=== PATIENT | female | born 1985 | race Caucasian/White ===

== ENCOUNTER 2016-07-09 10:41 | Emergency (ER) | payer OTHER ==
[~2016-07-09] VITALS: Ht 167.6 cm; Wt 110.0 kg
[~2016-07-09 10:41] MED LIST: MELO7.5T5 PO
[2016-07-09 10:44] VITALS: Ht 167.6 cm; Wt 110.0 kg
[2016-07-09] MEDS ORDERED: MoRPHine SULFATE 10 MG/ML CARP/VIAL IM STA (11:08)
[2016-07-09] MEDS ORDERED: MoRPHine SULFATE 4 MG/ML 1 ML CARP\\VIAL IV ONE (11:56)
[2016-07-09] MEDS ORDERED: MoRPHine SULFATE 4 MG/ML 1 ML CARP\\VIAL IV PRN (12:00)
--- NOTE | 2016-07-09 12:09 | DIAGNOSTIC IMAGING REPORT ---
LEFT FOOT 2 VIEWS CLINICAL HISTORY: Left foot pain status post trauma COMPARISON: None. DISCUSSION: There is a fracture of the distal fibula, posterior malleolus, and medial malleolus. No fractures the foot proper are visualized. There is Achilles insertional and plantar calcaneal spurring. There is disruption of the ankle mortise. IMPRESSION: Fracture subluxation of the ankle. No fractures or dislocations of the foot proper are visualized Electronically signed by: Baltazar Briseno M.D. 07/09/2016 12:08 PM Dictated Date/Time: 07/09/2016 12:07 PM
--- NOTE | 2016-07-09 12:11 | DIAGNOSTIC IMAGING REPORT ---
LEFT TIBIA/FIBULA 2 VIEWS ROUTINE, LEFT ANKLE 2 VIEWS CLINICAL HISTORY: trauma . Left ankle pain. COMPARISON STUDY: None. FINDINGS: The proximal tibia and fibula are intact. There is a 4 mm calcification within the pretibial soft tissues. Soft tissue laceration seen within the lateral aspect of the distal left lower leg. Trimalleolar left ankle fracture. The posterior malleolus demonstrates 2 mm of displacement. The medial malleolus is slightly distracted. The lateral malleolus demonstrates 7 mm of posterior displacement. There is mild widening of the medial ankle joint. Soft tissue swelling within the left ankle. IMPRESSION: Mildly displaced trimalleolar left ankle fracture as described above with mild widening of the ankle joint. Electronically signed by: David Wild M.D. 07/09/2016 12:10 PM Dictated Date/Time: 07/09/2016 12:05 PM
[2016-07-09 12:15] LABS: BASO % 0.2 %; BASO ABS # 0.02 K/uL (0-0.2); COMPLETE YES; EOS % 1.1 %; HEMATOCRIT 40.8 % (37-47); IG% 0.1 %; LYMPH % 13.6 %; LYMPH ABS # 1.31 K/uL (1.2-3.4); MEAN CELL VOLUME 88.3 fL (80-100); MEAN CORPUSCULAR HEMOGLOBIN 29.4 pg (25-34); MEAN CORPUSCULAR HGB CONC 33.3 g/dl (32-36); MEAN PLATELET VOLUME 10.2 fL (7.4-10.4); MONO % 5.8 %; NEUT % 79.2 %; PLATELET COUNT 270 K/uL (130-400); RED BLOOD COUNT 4.62 M/uL (4.2-5.4); WHITE BLOOD COUNT 9.61 K/uL (4.8-10.8)
--- NOTE | 2016-07-09 12:18 | EMERGENCY ROOM VISIT NOTE ---
History First contact with patient: 10:50 Chief Complaint: FALL Stated Complaint: FELL DOWN STAIRS - LEFT LEG History of Present Illness The patient is a 30 year old female who presents to the Emergency Room with complaints of left ankle injury occurred earlier today. Patient states she was walking down some stairs when she slipped and fell, twisting the left ankle. She states immediate pain and swelling, was unable to walk on the ankle after the injury. She denies any previous injuries to this ankle. She denies numbness, tingling, opening in the skin or noted bleeding. She denies any other injuries from the fall, did not hit her head, did not have loss of consciousness. She denies knee pain, hip pain, back pain, neck pain. She did not take any medications for the pain prior to arrival. Review of Systems GENERAL: Denies fevers, chills, malaise, fatigue, unintentional weight changes. HEENT: Denies dizziness, visual problems, hearing loss, tinnitus. Denies difficulty swallowing or oral lesions. PULMONARY: Denies cough, shortness of breath, sputum production or hemoptysis. CARDIOVASCULAR: Denies chest pain, palpitations, dyspnea on exertion, orthopnea or peripheral edema. GASTROINTESTINAL: Denies diarrhea, constipation, nausea, vomiting, or abdominal pain. GENITOURINARY: Denies dysuria, frequency, urgency or nocturia. NEUROLOGIC: Denies history of epilepsy, CVA, TIA or chronic headaches. MUSCULOSKELETAL: Joint tenderness/swelling of the left ankle. SKIN: Denies rashes or lesions. PSYCHIATRIC: Denies history of depression or mental illness. ENDOCRINE: Denies history of diabetes, thyroid disorders, abnormal hair growth or sexual dysfunction. Past Medical/Surgical History Medical Problems: (1) ADHD (attention deficit hyperactivity disorder) Family History No significant family history Social History Smoking Status: Current Every Day Smoker Alcohol Use: occasionally Occupation Status: employed Current/Historical Medications Scheduled Amphetamine-Dextroamphetamine 20MG (Adderall 20MG), 20 MG PO DAILY Scheduled PRN Oxycodone Immediate Rel Tab (Roxicodone Ir), 5 MG PO Q4H PRN for Severe Pain Allergies Coded Allergies: Sulfa Drugs (Verified Allergy, Intermediate, BACTRIM-HIVES, 07/09/16) Penicillins (Verified Allergy, Unknown, 07/09/16) Physical Exam Vital Signs Date Time Temp Pulse Resp B/P Pulse Ox O2 Delivery O2 Flow Rate FiO2 5/30/17 16:39 72 18 106/78 99 Room Air 07/09/16 15:17 84 16 109/68 98 Room Air 07/09/16 14:00 81 18 147/92 99 Room Air 07/09/16 12:05 90 18 158/98 100 Room Air 07/09/16 10:44 36.7 83 18 139/90 100 Room Air Physical Exam CONSTITUTIONAL: No acute distress but appears in significant pain. Well appearing and well nourished. Alert and oriented X 4 with normal affect. HEENT: Normocephalic, atraumatic. Pupils equal, round and reactive to light, EOMI. TMs normal. Pharynx normal. NECK: Supple, full active range of motion without discomfort. RESPIRATORY: Clear to auscultation bilaterally with no wheezing, crackles, rhonchi or stridor. Equal expansion bilaterally. CARDIOVASCULAR: Regular rate and rhythm with no murmurs, rubs or gallops. Normal peripheral perfusion. No edema. GASTROINTESTINAL: Soft, nontender, nondistended. Bowel sounds present in all quadrants. MUSCULOSKELETAL: Significant tenderness of the anterior and medial left ankle with noted deformity, ecchymosis, swelling. No breaks in the skin to suggest laceration or abrasion. DP pulse 2+ and palpable, normal cap refill and sensation distal to the injury. Range of motion of the left ankle severely limited due to pain. Full range of motion of all other joints without discomfort. INTEGUMENTARY: No rash or other significant dermatologic conditions noted. NEUROLOGIC: Cranial nerves II-XII grossly intact. No focal neurologic deficits noted. Medical Decision & Procedures ER Provider Diagnostic Interpretation: LEFT TIBIA/FIBULA 2 VIEWS ROUTINE, LEFT ANKLE 2 VIEWS CLINICAL HISTORY: trauma . Left ankle pain. COMPARISON STUDY: None. FINDINGS: The proximal tibia and fibula are intact. There is a 4 mm calcification within the pretibial soft tissues. Soft tissue laceration seen within the lateral aspect of the distal left lower leg. Trimalleolar left ankle fracture. The posterior malleolus demonstrates 2 mm of displacement. The medial malleolus is slightly distracted. The lateral malleolus demonstrates 7 mm of posterior displacement. There is mild widening of the medial ankle joint. Soft tissue swelling within the left ankle. IMPRESSION: Mildly displaced trimalleolar left ankle fracture as described above with mild widening of the ankle joint. ----- LEFT FOOT 2 VIEWS CLINICAL HISTORY: Left foot pain status post trauma COMPARISON: None. DISCUSSION: There is a fracture of the distal fibula, posterior malleolus, and medial malleolus. No fractures the foot proper are visualized. There is Achilles insertional and plantar calcaneal spurring. There is disruption of the ankle mortise. IMPRESSION: Fracture subluxation of the ankle. No fractures or dislocations of the foot proper are visualized. ----- CT OF THE LEFT ANKLE WITHOUT CONTRAST CT DOSE: 313.79 mGy.cm CLINICAL HISTORY: Left trimalleolar fracture. TECHNIQUE: Axial images of the left ankle were obtained without IV contrast. Sagittal and coronal reconstructions were viewed. COMPARISON STUDY: Left ankle radiographs July 09, 2016. FINDINGS: There is a moderately displaced comminuted fracture of the distal shaft of the left fibula which is displaced 7 mm. There is a acute mildly displaced fracture of the medial malleolus with 5 mm of displacement. There is a posterior oblique distal right tibial fracture with 7 mm of displacement. There is intra-articular extension. No intra-articular bone fragments are present. There are a few locules of adjacent gas. Tibiotalar joint space widening is noted. Talar dome is intact. There is no left calcaneal fracture. There is a nondisplaced fracture within the base of the left first metatarsal. Tarsometatarsal joints are aligned. Soft tissue swelling of the left ankle is noted. IMPRESSION: 1. Acute mildly displaced trimalleolar left ankle fracture with associated widening of the tibiotalar joint, as described above. 2. A few locules of soft tissue gas along the medial malleolus. These are nonspecific but likely related to the fracture/dislocation rather than an open fracture although could be correlated with physical exam. 3. Nondisplaced fracture the base of the left first metatarsal. Anatomic alignment of the tarsometatarsal joints. Laboratory Results 07/09/16 12:00 Red Blood Count 4.62, Mean Corpuscular Volume 88.3, Mean Corpuscular Hemoglobin 29.4, Mean Corpuscular Hemoglobin Concent 33.3, Mean Platelet Volume 10.2, Neutrophils (%) (Auto) 79.2, Lymphocytes (%) (Auto) 13.6, Monocytes (%) (Auto) 5.8, Eosinophils (%) (Auto) 1.1, Basophils (%) (Auto) 0.2, Neutrophils # (Auto) 7.60, Lymphocytes # (Auto) 1.31, Monocytes # (Auto) 0.56, Eosinophils # (Auto) 0.11, Basophils # (Auto) 0.02 07/09/16 12:00 Test 07/09/16 12:00 White Blood Count 9.61 K/uL (4.8-10.8) Red Blood Count 4.62 M/uL (4.2-5.4) Hemoglobin 13.6 g/dL (12.0-16.0) Hematocrit 40.8 % (37-47) Mean Corpuscular Volume 88.3 fL (80-100) Mean Corpuscular Hemoglobin 29.4 pg (25-34) Mean Corpuscular Hemoglobin Concent 33.3 g/dl (32-36) Platelet Count 270 K/uL (130-400) Mean Platelet Volume 10.2 fL (7.4-10.4) Neutrophils (%) (Auto) 79.2 % Lymphocytes (%) (Auto) 13.6 % Monocytes (%) (Auto) 5.8 % Eosinophils (%) (Auto) 1.1 % Basophils (%) (Auto) 0.2 % Neutrophils # (Auto) 7.60 K/uL (1.4-6.5) Lymphocytes # (Auto) 1.31 K/uL (1.2-3.4) Monocytes # (Auto) 0.56 K/uL (0.11-0.59) Eosinophils # (Auto) 0.11 K/uL (0-0.5) Basophils # (Auto) 0.02 K/uL (0-0.2) RDW Standard Deviation 43.5 fL (36.4-46.3) RDW Coefficient of Variation 13.4 % (11.5-14.5) Immature Granulocyte % (Auto) 0.1 % Immature Granulocyte # (Auto) 0.01 K/uL (0.00-0.02) Prothrombin Time 11.2 SECONDS (9.0-12.0) Prothromb Time International Ratio 1.0 (0.9-1.1) Activated Partial Thromboplast Time 23.7 SECONDS (21.0-31.0) Partial Thromboplastin Ratio 0.9 Anion Gap 7.0 mmol/L (3-11) Est Creatinine Clear Calc Drug Dose 140.9 ml/min Estimated GFR () 128.4 Estimated GFR (Non- 110.8 BUN/Creatinine Ratio 15.0 (10-20) Calcium Level 8.7 mg/dl (8.5-10.1) Medications Administered Medications (Trade) Dose Ordered Sig/Gail Route Start Time Stop Time Status Last Admin Dose Admin Morphine Sulfate (MoRPHine SULFATE INJ) 8 mg NOW STAT IM 07/09/16 11:08 07/09/16 11:11 DC 07/09/16 11:16 8 MG Morphine Sulfate (MoRPHine SULFATE INJ) 4 mg Q1H PRN IV 07/09/16 12:00 07/09/16 17:11 DC 07/09/16 13:00 4 MG Morphine Sulfate (MoRPHine SULFATE INJ) 4 mg 1156 ONCE IV 07/09/16 11:56 07/09/16 11:59 DC 07/09/16 12:02 4 MG Hydromorphone HCl (Dilaudid Inj) 1 mg NOW STAT IV 07/09/16 13:38 07/09/16 13:40 DC 07/09/16 13:43 1 MG Ondansetron HCl (Zofran Inj) 4 mg NOW STAT IV 07/09/16 15:05 07/09/16 15:07 DC 07/09/16 15:12 4 MG Ondansetron HCl (Zofran Inj) 4 mg NOW STAT IV 07/09/16 16:15 07/09/16 16:16 DC 07/09/16 16:22 4 MG Medical Decision CC: Patient presenting with complaint of left ankle injury Interpretation of Labs: No acute abnormalities. Differential Diagnosis: Includes, but not limited to ankle sprain, strain, fracture, dislocation Summary: Patient was evaluated at bedside, history of physical exam performed. She appears very uncomfortable and in a lot of pain. Crying on exam. There is noted swelling, ecchymosis and deformity of the left ankle, suspect fracture. Neurovascularly intact distally. No open areas noted on the skin. Orders were placed at bedside for IM morphine for pain, x-ray of the left foot, ankle, tib-fib to evaluate for fracture/dislocation. Patient discussed with Dr. Clark, who agrees with my assessment and plan. X-rays reviewed by myself, trimalleolar fracture noted with minimal displacement. Patient remains in severe pain, IV ordered and additional IV morphine given. Basic labs also sent. Patient discussed with Dr. Washington, orthopedics, who recommended splinting of the fracture, requested CT imaging to be done, and patient will follow up in clinic tomorrow for surgical planning. Patient reassessed multiple times throughout ED stay, remained in significant pain and requiring multiple doses of IV pain medication. Patient does appear to have much better pain control after splinting and immobilization. I discussed all results and plan for discharge with the patient and her . Patient complaining of some nausea, this was treated with IV Zofran and improved. Patient educated on use of crutches, and states she feels comfortable with discharge home. Rx for oxycodone sent to pharmacy. Patient is to follow up with orthopedics tomorrow, she verbalized understanding. Impression Primary Impression: Trimalleolar fracture of ankle, closed Departure Information Dispostion Home / Self-Care Condition GOOD Prescriptions Oxycodone Immediate Rel Tab (ROXICODONE IR) 5 Mg Tab 5 MG PO Q4H Y for Severe Pain for 3 Days, #18 TAB Prov: Christel Chapman CRNP 07/09/16 Referrals No Doctor, Assigned (PCP) Jovany Washington M.D. Patient Instructions ED Fx Ankle General, [facility] Additional Instructions Keep the splint clean and dry. Keep your ankle elevated and apply ice for the next 24-48 hours to help with swelling. Do not put any weight on the left leg. Use the crutches to get around. Tylenol 1000 mg every 8 hours for pain. May take the oxycodone as prescribed every 4 hours as needed for severe pain. Call [facility] orthopedics at 8 AM tomorrow morning to schedule an appointment for follow-up and surgery planning. Please return to the ER for severe worsening pain that is not managed by your medications, numbness or discoloration of toes, or any other concerns. Work Instructions Return To Work: after follow-up (with orthopedics) Additional Work Instructions: No weight bearing on the left leg. Must use crutches. Problem Qualifiers Primary Impression: Trimalleolar fracture of ankle, closed Encounter type: initial encounter Laterality: left Qualified Codes: S82.852A - Displaced trimalleolar fracture of left lower leg, initial encounter for closed fracture
[2016-07-09 12:23] LABS: PARTIAL THROMBOPLASTIN RATIO 0.9; PROTHROMBIN TIME (PATIENT) 11.2 SECONDS (9.0-12.0)
[2016-07-09] MEDS ORDERED: AMPH20TA2 PO (12:24)
[2016-07-09 12:33] LABS: CALCIUM 8.7 mg/dl (8.5-10.1); CREATININE 0.72 mg/dl (0.60-1.20); POTASSIUM 3.7 mmol/L (3.5-5.1)
[2016-07-09] MEDS ORDERED: HYDROmorphone INJ 1 MG/ML SYR IV STA (13:38)
--- NOTE | 2016-07-09 14:34 | DIAGNOSTIC IMAGING REPORT ---
CT OF THE LEFT ANKLE WITHOUT CONTRAST CT DOSE: 313.79 mGy.cm CLINICAL HISTORY: Left trimalleolar fracture. TECHNIQUE: Axial images of the left ankle were obtained without IV contrast. Sagittal and coronal reconstructions were viewed. COMPARISON STUDY: Left ankle radiographs July 09, 2016. FINDINGS: There is a moderately displaced comminuted fracture of the distal shaft of the left fibula which is displaced 7 mm. There is a acute mildly displaced fracture of the medial malleolus with 5 mm of displacement. There is a posterior oblique distal right tibial fracture with 7 mm of displacement. There is intra-articular extension. No intra-articular bone fragments are present. There are a few locules of adjacent gas. Tibiotalar joint space widening is noted. Talar dome is intact. There is no left calcaneal fracture. There is a nondisplaced fracture within the base of the left first metatarsal. Tarsometatarsal joints are aligned. Soft tissue swelling of the left ankle is noted. IMPRESSION: 1. Acute mildly displaced trimalleolar left ankle fracture with associated widening of the tibiotalar joint, as described above. 2. A few locules of soft tissue gas along the medial malleolus. These are nonspecific but likely related to the fracture/dislocation rather than an open fracture although could be correlated with physical exam. 3. Nondisplaced fracture the base of the left first metatarsal. Anatomic alignment of the tarsometatarsal joints. Electronically signed by: Tucker Garcia M.D. 07/09/2016 2:33 PM Dictated Date/Time: 07/09/2016 2:03 PM
[2016-07-09] MEDS ORDERED: ONDANSETRON INJ 2 MG/ML 2 ML VIAL IV STA ×2 (15:05→16:15)
[2016-07-09] MEDS ORDERED: OXYC1TAB3 PO (15:58)
[2016-07-09 16:39] VITALS: BP 106/78; PULSE 72; O2SAT 99
[2016-07-11] MEDS ORDERED: LOVENOX SQ (10:09)
[2016-07-11] MEDS ORDERED: OXYC1TAB3 PO (10:09)
[2016-07-11] MEDS ORDERED: TRAM-10 PO (10:10)
[2016-07-16] MEDS ORDERED: OXYC1TAB3 PO (17:40)
== END 2016-07-09 16:41 | disposition home or self-care (01) ==
LOC: C.EDB 10:42 → C.EDD 16:41
DX: S82.852A Displaced trimalleolar fracture of left lower leg, initial encounter for closed fracture (principal); W10.9XXA Fall (on) (from) unspecified stairs and steps, initial encounter; F90.9 Attention-deficit hyperactivity disorder, unspecified type; F17.210 Nicotine dependence, cigarettes, uncomplicated; Z79.899 Other long term (current) drug therapy

== ENCOUNTER → 2016-07-16 | Day surgery (SDC) | payer OTHER ==
[2016-07-11 10:10] VITALS: Ht 167.6 cm; Wt 109.1 kg
[~2016-07-16] VITALS: Ht 167.6 cm; Wt 109.1 kg
[~2016-07-16] MED LIST changes: +ATROPINE SULFATE 0.1 MG/ML 5ML SYR IV PRN; +BUPIVACAINE 0.5 % 5 MG/1 ML MPF 30ML VIAL ONE; +BUPIVACAINE/EPINEPHRINE 0.25% 1:200,000 30 ML VIAL ONE; +CEFAZOLIN 2000 MG/60 ML D5W IV SCH; +CEFAZOLIN IV 2,000 MG in DEXTROSE 5% 50ML 50 ML IV SCH; +CEFAZOLIN SOD 1 GM VIAL ONE; +DEXAMETHASONE SOD INJ 4 MG/ML VIAL ONE; +EpHEDrine SULFATE INJ 50 MG/ML AMP IV PRN; +EpHEDrine SULFATE INJ 50 MG/ML AMP ONE; +FENTANYL CITRATE INJ 50 MCG/1 ML 2 ML VIAL ONE; +FLUMAZENIL 0.1 MG/1 ML 10 ML VIAL IV PRN; +GLYCOPYRROLATE INJ 0.2 MG/ML VIAL ONE; +HYDROmorphone INJ 1 MG/ML SYR IV PRN; +KETOROLAC TROMETHAMINE 30 MG/ML VIAL IV STA; +KETOROLAC TROMETHAMINE 30 MG/ML VIAL ONE; +LABETALOL HCL IV 5 MG/ML 20ML IV ONE; +LABETALOL HCL IV 5 MG/ML 20ML IV PRN; +LACTATED RINGER'S 1000ML 1,000 ML IV SCH; +LIDOCAINE HCL 2% 2 ML VIAL (20MG/ML) ONE; +LOVENOX SQ; -MELO7.5T5 PO; +MEPIVACAINE HCL 1% 30 ML VIAL ONE; +MIDAZOLAM HCL 1 MG/ML 2ML VIAL ONE; +MoRPHine SULFATE 2 MG/ML CARP IV PRN; +MoRPHine SULFATE 4 MG/ML 1 ML CARP\\VIAL IV PRN; +NALOXONE HCL 0.4 MG/1 ML VIAL/CARP IV PRN; +NEOSTIGMINE METHYLSULFATE 5 MG/5 ML SYR ONE; +ONDANSETRON INJ 2 MG/ML 2 ML VIAL IV PRN; +ONDANSETRON INJ 2 MG/ML 2 ML VIAL ONE; +OXYC1TAB3 PO; +OXYCODONE/ACETAMINOPHEN 5-325 TAB PO PRN; +PHENYLEPHRINE HCL INJ 10 MG/ML VIAL ONE; +POVIDONE-IODINE OP SOLN 30 ML BTL ONE; +PROMETHAZINE HCL INJ 12.5 MG in SODIUM CHLORIDE 0.9% 50ML 50 ML IV PRN; +PROMETHAZINE HCL INJ 25 MG/ML 1 ML VIAL ONE; +PROPOFOL IV EMULSION 10 MG/ML 20 ML VIAL IV ONE; +ROCURONIUM BROMIDE 10 MG/ML 5 ML VIAL ONE; +SODIUM CHLORIDE 0.9% 1000ML 1,000 ML IV SCH; +SODIUM CHLORIDE 0.9% INJ 10 ML VIAL ONE; +SUCCINYLCHOLINE CHLORIDE 20 MG/ML 10 ML VIAL IV ONE; +TRAM-10 PO
--- NOTE | 2016-07-16 11:54 | History & Physical Bridge Note ---
H&P Re-Evaluation Bridge Note: I have examined the patient, reviewed the History & Physical and in the interval since the performance of the History & Physical I have noted the following changes of clinical significance: No changes noted
--- NOTE | 2016-07-16 17:17 | Discharge Instructions-SurgCtr ---
Discharge Instructions Date of Service Jul 16, 2016. Visit Reason for Visit: Left Ankle Trimalleolar Fracture Discharge Discharge Diagnosis / Problem: Left Ankel Trimalleolar Fracture Discharge Goals Goal(s): Decrease discomfort, Improve function, Increase independence Medications Restart Stopped Medication(s): Resume Lovenox 40 mg SQ once daily on 07/17/16 at 9:00 a.m. Activity Recommendations Activity Limitations: per Instructions/Follow-up section Weightbearing Status: Left non-weightbearing Anesthesia . Post Anesthesia Instructions: If you have had General Anesthesia or IV Sedation: * Do not drive today. * Resume driving when surgeon permits. * Do not make important decisions or sign legal documents today. * Call surgeon for: 1. Temperature elevations greater than 101 degrees F. 2. Uncontrollable pain. 3. Excessive bleeding. 4. Persistent nausea and vomiting. 5. Medication intolerance (nausea, vomiting or rash). * For nausea and vomiting use only clear liquids such as: tea, soda, bouillon until nausea subsides, then gradually increase diet as tolerated. * If you have any concerns or questions, call your surgeon's office. If physician is unavailable and it is an emergency, call 911 or go to the nearest emergency room. . Instructions / Follow-Up Instructions / Follow-Up DIET: * Resume previous diet. MEDICATIONS: * Please take your prescriptions as instructed at your pre-op appointment and/ or see medication discharge instructions listed above. * If concerns develop, call your physician's office at . * Start Lovenox 07/17/16 at 9:00 a.m. * Pain medication as prescribed. SPECIAL CARE INSTRUCTIONS: * Ice to left ankle as needed for pain/swelling. * Elevate left ankle as needed for pain/swelling. * Keep dressing clean, dry, intact. Keep splint on at all times. * Do not put weight on left leg. Use crutches to assist with walking. * Okay to wiggle toes frequently and move/bend knee as tolerated. * Your surgical extremity may be discolored due to prepping agents used on the skin. A bluish-green tint is a normal variant and should not cause alarm. Call your doctor at [phone] if: * Temperature above 101 degrees * Pain not relieved by pain medicine ordered * There is increased drainage or redness from any incision * You have any unanswered questions, problems or concerns. FOLLOW UP VISIT: * If not already scheduled, please call the office at to schedule a follow-up appointment. * Follow up with physical therapy and Dr. Washington as scheduled. Diet Recommendations Home Diet: no limitations, resume previous diet Procedures Procedures Performed: Left Ankle Open Reduction Internal Fixation Pending Studies Studies pending at discharge: no Medical Emergencies . Who to Call and When: Medical Emergencies: If at any time you feel your situation is an emergency, please call 911 immediately. . Non-Emergent Contact Non-Emergency issues call your: Surgeon Call Non-Emergent contact if: temperature is above 101, your pain is not controlled, your pain is concerning you, wound has increased drainage . . "Provider Documentation" section prepared by Arlyn Horan. . [place] Drug Monitoring Program Search Results: patient reviewed within database
--- NOTE | 2016-07-16 17:28 | [facility] Post Operative Brief Note ---
Immediate Operative Summary Operative Date Jul 16, 2016. Pre-Operative Diagnosis Left Ankle Trimalleolar Fracture Post-Operative Diagnosis Same Procedure(s) Performed Left Ankle Trimalleolar Fracture Open Reduction Internal Fixation Surgeon Dr. Washington [employer] Associate Surgeon(s) Dr. Hale; Marlin Johnson PA-C Estimated Blood Loss 50 mL Findings trimalleolar fracture Specimens None Drains 0 Anesthesia general with block Complication(s) None Disposition Recovery Room / PACU
--- NOTE | 2016-07-16 18:47 | OPERATIVE REPORT ---
PREOPERATIVE DIAGNOSIS: Left ankle trimalleolar fracture. POSTOPERATIVE DIAGNOSIS: Left ankle same. PROCEDURE: Left ankle trimalleolar fracture ORIF. SURGEON: Dr. Washington. IMPORT CUSTOMER SERVICE MANAGER: Dr. Parish. SECOND IMPORT CUSTOMER SERVICE MANAGER: Tolu Johnson PA-C. HISTORY OF PRESENT ILLNESS: This 30-year-old white female presented to the office with complaints of left ankle pain after falling at home and fracturing her ankle. X-rays were obtained. She elected to proceed with surgical intervention after being educated about potential risks and outcomes. OPERATION: The patient was administered a regional block and then taken to the operating room where she was given general anesthetic. She was prepped and draped in the usual sterile fashion. Please see Dr. Washington's operative report for specifics of the procedure. I was present for the entire case from initial patient positioning through final wound closure. Assistance was provided in tissue retraction, hemostasis, fracture reduction, hardware placement, and final wound closure. The patient was taken to the recovery room in satisfactory condition.
[2016-07-16 18:58] VITALS: TEMP 36.8
[2016-07-16 19:44] VITALS: BP 133/77; O2SAT 99
--- NOTE | 2016-07-16 19:56 | Anesthesia Progress Nt - [facility] ---
Anesthesia Post Op Note Date & Time Jul 16, 2016 at 19:56 Vital Signs Pain Intensity: 4 Vital Signs Past 12 Hours Date Time Temp Pulse Resp B/P (MAP) Pulse Ox O2 Delivery O2 Flow Rate FiO2 07/16/16 19:44 90 12 133/77 (95) 99 Room Air 07/16/16 18:58 36.8 93 16 129/87 (101) 100 Room Air 07/16/16 18:52 129/77 07/16/16 18:52 36.8 93 20 129/77 98 Room Air 07/16/16 18:50 96 28 07/16/16 18:50 96 28 99 07/16/16 18:48 131/85 07/16/16 18:45 85 19 98 07/16/16 18:45 86 19 07/16/16 18:42 134/88 07/16/16 18:40 88 16 100 07/16/16 18:40 86 16 07/16/16 18:37 131/80 07/16/16 18:35 78 17 07/16/16 18:35 77 17 98 07/16/16 18:32 139/76 07/16/16 18:30 82 17 100 07/16/16 18:30 82 17 07/16/16 18:27 130/77 07/16/16 18:25 77 17 100 07/16/16 18:25 78 17 07/16/16 18:22 126/81 07/16/16 18:20 78 18 100 07/16/16 18:20 77 18 07/16/16 18:17 129/79 07/16/16 18:15 79 19 07/16/16 18:15 79 19 100 07/16/16 18:12 99/76 07/16/16 18:10 82 16 100 07/16/16 18:10 82 16 07/16/16 18:07 130/82 07/16/16 18:05 80 14 07/16/16 18:05 80 14 100 07/16/16 18:02 139/88 07/16/16 18:00 83 18 100 07/16/16 18:00 83 18 07/16/16 17:57 137/83 07/16/16 17:55 84 17 100 07/16/16 17:55 84 17 07/16/16 17:52 135/69 07/16/16 17:50 85 14 100 07/16/16 17:50 85 14 07/16/16 17:47 122/70 07/16/16 17:45 85 14 100 07/16/16 17:45 87 14 07/16/16 17:45 36.2 85 16 122/70 100 Mask 6 07/16/16 17:44 145/76 07/16/16 12:40 0 07/16/16 12:39 93 30 100 07/16/16 12:39 93 07/16/16 12:39 93 30 100 07/16/16 12:39 93 07/16/16 12:37 139/87 07/16/16 12:37 139/87 07/16/16 12:34 77 07/16/16 12:34 77 23 100 07/16/16 12:34 77 23 100 07/16/16 12:34 77 07/16/16 12:32 149/89 07/16/16 12:32 149/89 07/16/16 12:29 87 17 100 07/16/16 12:29 87 17 100 07/16/16 12:29 85 07/16/16 12:29 85 07/16/16 12:27 164/107 07/16/16 12:27 164/107 07/16/16 12:24 80 21 134/85 100 07/16/16 12:24 77 07/16/16 12:24 77 07/16/16 12:24 80 21 134/85 100 07/16/16 12:19 87 07/16/16 12:19 87 07/16/16 12:19 90 0 99 07/16/16 12:19 90 0 99 07/16/16 12:14 73 0 97 07/16/16 12:14 74 07/16/16 12:14 74 07/16/16 12:14 73 0 97 07/16/16 12:09 79 07/16/16 12:09 81 0 97 07/16/16 12:09 79 07/16/16 12:09 81 0 97 07/16/16 10:36 37.2 87 18 132/89 (103) 96 Room Air Notes Mental Status: alert / awake / arousable, participated in evaluation Pt Amnestic to Procedure: Yes Nausea / Vomiting: adequately controlled Pain: adequately controlled Airway Patency, RR, SpO2: stable & adequate BP & HR: stable & adequate Hydration State: stable & adequate Anesthetic Complications: no major complications apparent
--- NOTE | 2016-07-16 21:52 | OPERATIVE REPORT ---
DATE OF OPERATION: 07/16/2016 PREOPERATIVE DIAGNOSIS: Left ankle trimalleolar fracture. POSTOPERATIVE DIAGNOSIS: Same. PROCEDURE: Open reduction and internal fixation of left ankle trimalleolar fracture. SURGEON: Dr. Washington. ROAD OILER: Tin Padron MD and Tolu Johnson, physician's surgical services assistant. ANESTHESIA: General with popliteal block. INDICATIONS OF PROCEDURE: The patient is a 30-year-old female with a left ankle trimalleolar fracture. She has been evaluated in the office, had CT scan and x-rays done. Treatment options, risks and benefits have been discussed and she elected to proceed with operative intervention. She stopped her Lovenox 36 hours prior to surgery. PROCEDURE IN DETAIL: Informed consent was obtained. The patient identified as Leann Rebollar. She identified the operative site as the left ankle. I marked with my initials. A preop surgical time out was performed. A preop dose of IV antibiotics were given. She was taken to the operating room, positioned prone on the OR table after administration of the anesthetic. The splint was removed and inspection revealed no blistering, swelling was mild, there was some bruising present over the distal and posterior aspects of the medial and lateral sides of the ankle. The ankle was scrubbed with chlorhexidine scrub and then double prepped with chlorhexidine and prepped and draped in the usual sterile fashion. Prior to that a nonsterile tourniquet was applied about the left upper thigh. DVT prophylaxis intraoperatively with foot pump, postoperatively with early mobility and Lovenox beginning the day after surgery. The limb was exsanguinated with the Esmarch, tourniquet inflated to 275 mmHg. A longitudinal lateral incision was made about 20 cm in length just parallel to the posterior border of the fibula. Blunt dissection was performed down to subcutaneous tissues. The superficial peroneal nerve was watched for, but not encountered. Careful dissection was performed throughout the incision. Once down to the bone, subperiosteal exposure of the fibular fracture site was performed. The fibular fracture site was opened, cleaned of hematoma and soft tissue and anatomically reduced with a bone reduction clamp. I then turned attention to the posterior malleolar fracture. Dissection was performed posterior to the peroneal musculature elevating the soft tissues posteriorly. The fascial covering over the deep posterior compartment was opened and these muscles were bluntly elevated off of the posterior aspect of the tibia. This exposed the posterior malleolar fracture. Subperiosteal exposure of its fracture margins were performed, medial, lateral and superior. An anterior counterincision was made over the anterior tibia medial to the tibialis anterior tendon and with a large bone reduction clamp placed on the tibia using fluoroscopic guidance, the posterior tibial malleolar fracture was reduced. In order to get anatomic reduction I did various combinations of distraction, dorsiflexion, distal pressure with the clamp, a little bit of prying with a freer elevator and trying both with and without fibular reduction. An anatomic reduction was obtained with the large bone clamp. I then placed 2 K wires distal to the clamp to secure this and then evaluated fluoroscopically and found that the alignment was excellent. I then took a T plate, applied it posteriorly, used fluoroscopy to help align it. I then placed 2 guidewires with a 4.0 cancellous screws distally in the medial and lateral slots. These were placed up to the anterior cortex. After adjusting the pins x1 they were overdrilled and screws were inserted across the fracture in a unicortical fashion. I then applied a proximal screw in the shaft. This was a cortical screw, 3.5 mm in diameter and that was followed by another 4.0 cancellous screw in between. This resulted in an anatomic alignment of the posterior malleolar fracture and good positioning of the hardware. Attention was then turned to the lateral malleolar fracture. A lag screw was inserted from posterior and distal to proximal and anterior. This was followed by a one-third tubular locking plate, which was prebent and affixed to the fibula, 8 holes in length. A cancellous screw was placed distally and a cortical screw proximally and after determining good positioning and fracture reduction an additional cancellous screw was placed distally and 2 locking screws proximally. I eventually inserted a third unicortical locking screw distally, once it was determined that the syndesmosis screw was no longer needed. The tourniquet was let down after 20 minutes of inflation. There was no significant bleeding. The wounds were kept moist throughout the surgery using both Betadine lavage and sterile saline for irrigation. Attention was turned to the medial malleolar fracture where an 8 cm medial incision was made. Blunt dissection was then performed down to the subcutaneous tissues. The periosteum remained intact and this required a longitudinal division to identify the fracture site. The fracture site was exposed, cleaned of soft tissue and hematoma of which there was no soft tissue but small hematoma. This small fracture which angled fairly sharply from distal posterior proximal anterior was then reduced with a bone clamp and guide pins were inserted. It took several attempts at adjusting the guide pins in order to get them in the proper position as well as to avoid the other hardware. I at one point proceeded to switch to a tension band type fixation even applying a cancellous screw in the shaft; however, I was not happy with the depth of penetration of the pins as they were striking some of the preexisting hardware from the posterior fixation. I decided against the tension band construct after I was able to redirect the guidewires in an appropriate direction to avoid the posterior hardware yet provide good orientation across the fracture site and up the shaft of the tibia. The posterior tibial tendon was identified. Blunt dissection was performed down on the wires and they were overdrilled on the near cortex and screws were approximately 34 and 40 mm in length were inserted. Both screws had excellent bite and the fracture was anatomically reduced and was stable. It did not appear that the screws were hitting the hardware at all. At this time, the syndesmosis was stressed. I was able to directly palpate the tibia and the fibula. I reduced the fibula and then distracted both manually and with a clamp and there was absolutely no laxity on either compression or distraction of the syndesmosis. Dr. Parish was able to confirm this. All wounds were copiously irrigated with sterile saline. The anterior counter incision was closed with 3-0 Vicryl and genia. On the medial side, the periosteum was closed over the fracture. The skin was then closed with 3-0 Vicryl and genia. On the lateral side, I used 2-0 Vicryl to reapproximate soft tissues over the anterior 1-1/2 of the plate. Proximal to that, the level of the fracture there was gross disruption of the deep periosteum and soft tissues and a periosteal coverage repair was not possible. The subcutaneous tissues were closed with 2-0 and 3-0 Vicryls and genia on the skin. A soft sterile dressing was applied after cleaning the leg with some diluted peroxide and saline. Xeroform, 4 x 4's, ABDs and a well-padded posterior splint with the ankle in neutral position was applied. Fluoroscopic images, AP, lateral and mortise views demonstrated that there was anatomic reduction of the fractures, intact ankle syndesmosis and mortise and good positioning of the hardware. She was awakened from anesthesia without difficulty and taken to recovery in stable condition. There were no specimens or complications. Counts were correct at the end of case. Blood loss was approximately 50 mL. At the conclusion of the operation, I spoke to patient's family and informed them of my findings. Postoperative instructions were given. She will be non-weightbearing on the affected leg. She will be given additional prescription for pain medication as she is running out. She is to start the Lovenox the morning following surgery. We discussed any problems or questions should arise that she should contact my office. She is to elevate the leg and she will receive a postop dose of IV antibiotics prior to discharge. The plan will be for non-weightbearing for 6 weeks. She will be in next week to get her fracture boot and initiate some PT for range of motion. I attest to the content of the Intraoperative Record and any orders documented therein. Any exception s are noted below.
== END | disposition home or self-care (01) ==
LOC: X.SURG 10:15
PROVIDERS: ATTEND Physical Medicine & Rehabilitation Sports Medicine
DX: S82.852A Displaced trimalleolar fracture of left lower leg, initial encounter for closed fracture (principal); W01.0XXA Fall on same level from slipping, tripping and stumbling without subsequent striking against object, initial encounter; Y92.009 Unspecified place in unspecified non-institutional (private) residence as the place of occurrence of the external cause; F90.9 Attention-deficit hyperactivity disorder, unspecified type

== ENCOUNTER → 2016-07-30 | Outpatient (CLI) | payer OTHER ==
[~2016-07-30] MED LIST changes: -ATROPINE SULFATE 0.1 MG/ML 5ML SYR IV PRN; -BUPIVACAINE 0.5 % 5 MG/1 ML MPF 30ML VIAL ONE; -BUPIVACAINE/EPINEPHRINE 0.25% 1:200,000 30 ML VIAL ONE; -CEFAZOLIN 2000 MG/60 ML D5W IV SCH; -CEFAZOLIN IV 2,000 MG in DEXTROSE 5% 50ML 50 ML IV SCH; -CEFAZOLIN SOD 1 GM VIAL ONE; -DEXAMETHASONE SOD INJ 4 MG/ML VIAL ONE; -EpHEDrine SULFATE INJ 50 MG/ML AMP IV PRN; -EpHEDrine SULFATE INJ 50 MG/ML AMP ONE; -FENTANYL CITRATE INJ 50 MCG/1 ML 2 ML VIAL ONE; -FLUMAZENIL 0.1 MG/1 ML 10 ML VIAL IV PRN; -GLYCOPYRROLATE INJ 0.2 MG/ML VIAL ONE; -HYDROmorphone INJ 1 MG/ML SYR IV PRN; -KETOROLAC TROMETHAMINE 30 MG/ML VIAL IV STA; -KETOROLAC TROMETHAMINE 30 MG/ML VIAL ONE; -LABETALOL HCL IV 5 MG/ML 20ML IV ONE; -LABETALOL HCL IV 5 MG/ML 20ML IV PRN; -LACTATED RINGER'S 1000ML 1,000 ML IV SCH; -LIDOCAINE HCL 2% 2 ML VIAL (20MG/ML) ONE; -MEPIVACAINE HCL 1% 30 ML VIAL ONE; -MIDAZOLAM HCL 1 MG/ML 2ML VIAL ONE; -MoRPHine SULFATE 2 MG/ML CARP IV PRN; -MoRPHine SULFATE 4 MG/ML 1 ML CARP\\VIAL IV PRN; -NALOXONE HCL 0.4 MG/1 ML VIAL/CARP IV PRN; -NEOSTIGMINE METHYLSULFATE 5 MG/5 ML SYR ONE; -ONDANSETRON INJ 2 MG/ML 2 ML VIAL IV PRN; -ONDANSETRON INJ 2 MG/ML 2 ML VIAL ONE; -OXYCODONE/ACETAMINOPHEN 5-325 TAB PO PRN; -PHENYLEPHRINE HCL INJ 10 MG/ML VIAL ONE; -POVIDONE-IODINE OP SOLN 30 ML BTL ONE; -PROMETHAZINE HCL INJ 12.5 MG in SODIUM CHLORIDE 0.9% 50ML 50 ML IV PRN; -PROMETHAZINE HCL INJ 25 MG/ML 1 ML VIAL ONE; -PROPOFOL IV EMULSION 10 MG/ML 20 ML VIAL IV ONE; -ROCURONIUM BROMIDE 10 MG/ML 5 ML VIAL ONE; -SODIUM CHLORIDE 0.9% 1000ML 1,000 ML IV SCH; -SODIUM CHLORIDE 0.9% INJ 10 ML VIAL ONE; -SUCCINYLCHOLINE CHLORIDE 20 MG/ML 10 ML VIAL IV ONE
== END | disposition home or self-care (01) ==
LOC: C.RDSM 10:10
PROVIDERS: ATTEND Physical Medicine & Rehabilitation Sports Medicine
DX: S82.852A Displaced trimalleolar fracture of left lower leg, initial encounter for closed fracture (principal); X58.XXXA Exposure to other specified factors, initial encounter

== ENCOUNTER → 2016-08-30 | Outpatient (CLI) | payer OTHER | END | disposition home or self-care (01) | LOC: C.RDSM 13:05 | PROVIDERS: ATTEND Physical Medicine & Rehabilitation Sports Medicine | DX: S82.852D Displaced trimalleolar fracture of left lower leg, subsequent encounter for closed fracture with routine healing (principal); X58.XXXA Exposure to other specified factors, initial encounter ==

== ENCOUNTER → 2016-11-01 | Outpatient (CLI) | payer OTHER | END | disposition home or self-care (01) | LOC: C.RDSM 11:08 | PROVIDERS: ATTEND Physical Medicine & Rehabilitation Sports Medicine | DX: Z09 Encounter for follow-up examination after completed treatment for conditions other than malignant neoplasm (principal) ==

== ENCOUNTER 2017-06-07 16:12 | Emergency (ER) | payer OTHER ==
[~2017-06-07] VITALS: Ht 167.6 cm; Wt 122.5 kg
[2017-06-07 16:15] VITALS: TEMP 36.6; Ht 167.6 cm; Wt 122.5 kg
[2017-06-07] MEDS ORDERED: SODIUM CHLORIDE 0.9% 1000ML 1,000 ML IV STA (16:27)
[2017-06-07] MEDS ORDERED: KETOROLAC TROMETHAMINE 30 MG/ML VIAL IV STA (16:27)
[2017-06-07] MEDS ORDERED: ALBUTEROL 0.083% NEBU SOLN 3 ML VIAL INH STA (16:27)
--- NOTE | 2017-06-07 16:48 | DIAGNOSTIC IMAGING REPORT ---
CHEST ONE VIEW PORTABLE CLINICAL HISTORY: Chest Pain dyspnea COMPARISON STUDY: No previous studies for comparison. FINDINGS: The bones soft tissues and hemidiaphragms are normal. The cardiomediastinal silhouette is normal. The lungs are clear. The pulmonary vasculature is normal. IMPRESSION: Negative chest. The above report was generated using voice recognition software. It may contain grammatical, syntax or spelling errors. Electronically signed by: Norris Palomo M.D. 06/07/2017 4:47 PM Dictated Date/Time: 06/07/2017 4:47 PM
[2017-06-07 16:54] LABS: BASO % 0.3 %; BASO ABS # 0.02 K/uL (0-0.2); EOS % 1.7 %; EOS ABS # 0.12 K/uL (0-0.5); HEMATOCRIT 43.7 % (37-47); HEMOGLOBIN 14.8 g/dL (12.0-16.0); IG# 0.03 K/uL (0.00-0.02); LYMPH % 30.6 %; LYMPH ABS # 2.16 K/uL (1.2-3.4); MEAN CELL VOLUME 88.5 fL (80-100); MEAN CORPUSCULAR HGB CONC 33.9 g/dl (32-36); MEAN PLATELET VOLUME 10.8 fL (7.4-10.4); MONO % 5.4 %; MONO ABS # 0.38 K/uL (0.11-0.59); NEUT % 61.6 %; NEUT ABS # 4.36 K/uL (1.4-6.5); PLATELET COUNT 255 K/uL (130-400); RED CELL DISTRIBUTION WIDTH CV 13.6 % (11.5-14.5); RED CELL DISTRIBUTION WIDTH SD 44.2 fL (36.4-46.3); WHITE BLOOD COUNT 7.07 K/uL (4.8-10.8)
--- NOTE | 2017-06-07 16:59 | EMERGENCY ROOM VISIT NOTE ---
History Report prepared by [facility]: Bhargavi Rodriguez Under the Supervision of: Dr. Noel Souza D.O. 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 She states that a little more than 2 weeks ago she used a hardener for paint in her home. Ever since then, she has had SOB and a persistent cough and has noticed it worsening lately. She also has a sharp pain in her chest and sitting up alleviates her pain but taking a deep breath worsens it. This is been present for the past 2 weeks as well. She does admit to a cough which is been present during the same time. The patient notes she has numbness in her hands as well. Patient denies headaches, diabetes, hypertension, hyperlipidemia, CAD, and history of sudden at a young age. Patient denies swelling of calves, history of immobilization or recent surgery, prior history of DVT, hemoptysis, history of malignancy, or control/estrogen use. She does admit to smoking along with recent travel to [place]. 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 Patient denies swelling of calves, recent trips, history of immobilization or recent surgery, prior history of DVT , hemoptysis, history of malignancy, or control/estrogen use. Review of Systems See HPI for pertinent positives & negatives. A total of 10 systems reviewed and were otherwise negative. Past Medical & Surgical Medical Problems: (1) ADHD (attention deficit hyperactivity disorder) Family History No significant family history Social History Smoking Status: Current Every Day Smoker Alcohol Use: occasionally Occupation Status: employed Current/Historical Medications Scheduled Acetaminophen (Tylenol), 1,000 MG PO PRN UD Scheduled PRN Amphetamine-Dextroamphetamine 10MG (Adderall 10MG), 10 MG PO DAILY PRN for Allergies Coded Allergies: Sulfa Drugs (Verified Allergy, Intermediate, BACTRIM-HIVES, 07/16/16) Latex1 -Allergic Contact Dermititis (Verified Allergy, Mild, ITCHY, 07/16/16 ) Penicillins (Verified Allergy, Unknown, CHILD, 07/16/16) Physical Exam Vital Signs Date Time Temp Pulse Resp B/P (MAP) Pulse Ox O2 Delivery O2 Flow Rate FiO2 06/07/17 17:34 100 20 147/80 100 Room Air 06/07/17 16:42 117 06/07/17 16:15 36.6 99 20 138/89 99 Room Air Physical Exam GENERAL: Sitting up in bed, alert, well appearing, well nourished, no distress, non-toxic. EYE EXAM: normal conjunctiva. PERRL and EOM's grossly intact. OROPHARYNX: no exudate, no erythema, lips, buccal mucosa, and tongue normal and mucous membranes are moist NECK: supple, no nuchal rigidity, no adenopathy, non-tender LUNGS: Clear to auscultation. Normal chest wall mechanics HEART: no murmurs, S1 normal and S2 normal CHEST: Acute reproducible anterior chest wall pain. Same as stated complaint. ABDOMEN: abdomen soft, non-tender, normo-active bowel sounds, no masses, no rebound or guarding. BACK: Back is symmetrical on inspection and there is no deformity, no midline tenderness, no CVA tenderness. SKIN: no rashes and no bruising UPPER EXTREMITIES: upper extremities are grossly normal. LOWER EXTREMITIES: No pitting edema. Calves are equal bilateral NEURO EXAM: Normal sensorium, cranial nerves II-XII intact, normal speech, no weakness of arms, no weakness of legs. Ambulatory with difficulty. Medical Decision & Procedures ER Provider Diagnostic Interpretation: Radiology results as stated below per my review and the radiologist's interpretation: CHEST ONE VIEW PORTABLE CLINICAL HISTORY: Chest Pain dyspnea COMPARISON STUDY: No previous studies for comparison. FINDINGS: The bones soft tissues and hemidiaphragms are normal. The cardiomediastinal silhouette is normal. The lungs are clear. The pulmonary vasculature is normal. IMPRESSION: Negative chest. The above report was generated using voice recognition software. It may contain grammatical, syntax or spelling errors. Electronically signed by: Norris Palomo M.D. 06/07/2017 4:47 PM Laboratory Results 06/07/17 16:40 Red Blood Count 4.94, Mean Corpuscular Volume 88.5, Mean Corpuscular Hemoglobin 30.0, Mean Corpuscular Hemoglobin Concent 33.9, Mean Platelet Volume 10.8, Neutrophils (%) (Auto) 61.6, Lymphocytes (%) (Auto) 30.6, Monocytes (%) (Auto) 5.4, Eosinophils (%) (Auto) 1.7, Basophils (%) (Auto) 0.3, Neutrophils # (Auto) 4.36, Lymphocytes # (Auto) 2.16, Monocytes # (Auto) 0.38, Eosinophils # (Auto) 0.12, Basophils # (Auto) 0.02 06/07/17 16:40 Test 06/07/17 16:40 White Blood Count 7.07 K/uL (4.8-10.8) Red Blood Count 4.94 M/uL (4.2-5.4) Hemoglobin 14.8 g/dL (12.0-16.0) Hematocrit 43.7 % (37-47) Mean Corpuscular Volume 88.5 fL (80-100) Mean Corpuscular Hemoglobin 30.0 pg (25-34) Mean Corpuscular Hemoglobin Concent 33.9 g/dl (32-36) Platelet Count 255 K/uL (130-400) Mean Platelet Volume 10.8 fL (7.4-10.4) Neutrophils (%) (Auto) 61.6 % Lymphocytes (%) (Auto) 30.6 % Monocytes (%) (Auto) 5.4 % Eosinophils (%) (Auto) 1.7 % Basophils (%) (Auto) 0.3 % Neutrophils # (Auto) 4.36 K/uL (1.4-6.5) Lymphocytes # (Auto) 2.16 K/uL (1.2-3.4) Monocytes # (Auto) 0.38 K/uL (0.11-0.59) Eosinophils # (Auto) 0.12 K/uL (0-0.5) Basophils # (Auto) 0.02 K/uL (0-0.2) RDW Standard Deviation 44.2 fL (36.4-46.3) RDW Coefficient of Variation 13.6 % (11.5-14.5) Immature Granulocyte % (Auto) 0.4 % Immature Granulocyte # (Auto) 0.03 K/uL (0.00-0.02) D-Dimer < 190 ug/L FEU (0-500) Anion Gap 4.0 mmol/L (3-11) Est Creatinine Clear Calc Drug Dose 133.5 ml/min Estimated GFR () 112.3 Estimated GFR (Non- 96.9 BUN/Creatinine Ratio 12.3 (10-20) Calcium Level 8.9 mg/dl (8.5-10.1) Troponin I < 0.015 ng/ml (0-0.045) Laboratory results per my review. Medications Administered Medications (Trade) Dose Ordered Sig/Gail Route Start Time Stop Time Status Last Admin Dose Admin Albuterol Sulfate (Ventolin 0.083% 2.5MG/3ML Neb) 2.5 mg NOW STAT INH 06/07/17 16:27 06/07/17 16:28 DC 06/07/17 16:53 2.5 MG Ketorolac Tromethamine (Toradol Inj) 30 mg NOW STAT IV 06/07/17 16:27 06/07/17 16:28 DC 06/07/17 16:53 30 MG Sodium Chloride 1,000 ml @ 999 mls/hr Q1H1M STAT IV 06/07/17 16:27 06/07/17 17:27 DC 06/07/17 16:54 999 MLS/HR ECG Per My Interpretation Indication: SOB/dyspnea Rate (beats per minute): 94 Rhythm: sinus rhythm Findings: no ectopy, other (normal axis) ED Course ED COURSE: Vital signs were reviewed and showed situationally The patients medical record was reviewed The above diagnostic studies were performed and reviewed. ED treatments and interventions as stated above. 1621: The patient was evaluated in room B2. A complete history and physical examination was performed. 1627: Sodium Chloride 1000 ml @ 2.5 mls/hr IV Toradol Inj 30 mg IV Albuterol Sulfate 2.5 mg INH 1800: Upon reevaluation, the patient is agreeable.I discussed my findings with the patient and she understands and agrees with the treatment plan. Based on the patients age, coexisting illnesses, exam and lab findings the decision to treat as an outpatient was made. The patient remained stable while under my care. The patient appeared well at the time of discharge. Medical Decision Differential diagnoses includes but is not limited to pneumonia, bronchitis, COPD/Asthma exacerbation, pneumothorax, pulmonary embolism, congestive heart failure, acute coronary syndrome. Patient is a 31-year-old female who presents the ER for shortness of breath associated with pleuritic chest pain which is been present for the past 2 weeks. Patient has no cardiac or PE risk factors with the exception of recent trip to [place] and smoking. Patient does have reproducible anterior chest wall pain which is same as stated complaint. Does worsen with sitting up and palpation. EKG was unremarkable. Patient was given Toradol and fluids along with a neb treatment. CBC along with BMP was unremarkable. Troponin was negative. D-dimer was negative. Patient is a low risk. Symptoms have been present for greater than 8 hours. I do not believe that this is cardiac in nature. I do believe it is likely muscle skeletal as she is reproducible pain. Recommended Tylenol and Motrin. She did become tachycardic with a neb. Discussed with Pt concerning signs and symptoms to watch out for. Pt was instructed to follow up with their PCP and discussed with the patient their option to return to the ED at anytime for persistent or worsening symptoms. The appropriate anticipatory guidance and out-patient management, including indications for return to the emergency department, were explained at length to the patient and understood. Medication Reconcilliation Current Medication List: was personally reviewed by me Blood Pressure Screening Patient's blood pressure: Elevated blood pressure Blood pressure disposition: Elevated BP felt to be situational Impression Primary Impression: SOB (shortness of breath) Additional Impression: Muscular chest pain Scribe Attestation The scribe's documentation has been prepared under my direction and personally reviewed by me in its entirety. I confirm that the note above accurately reflects all work, treatment, procedures, and medical decision making performed by me. Departure Information Dispostion Home / Self-Care Referrals Marisol Luciano C.R.N.P. (PCP) Forms HOME CARE DOCUMENTATION FORM, IMPORTANT VISIT INFORMATION Patient Instructions [facility] Additional Instructions Please follow up with your primary care doctor with in the next 24 hours. Any worsening of your symptoms, please return to the ED immediately. This includes any fevers greater than 100.4, worsening pain, chest pain, shortness breath, persistent nausea, vomiting, unable to eat or drink, or any other concerning signs or symptoms from your standpoint. Please follow-up with your primary care doctor as stated above for repeat evaluation on Friday. Please take Tylenol or Motrin as needed for your chest pain. Problem Qualifiers
[2017-06-07] MEDS ORDERED: ACET-1256 PO (17:07)
[2017-06-07] MEDS ORDERED: AMPH10TA2 PO (17:07)
[2017-06-07 17:12] LABS: BLOOD UREA NITROGEN 10 mg/dl (7-18); CALCIUM 8.9 mg/dl (8.5-10.1); CARBON DIOXIDE 27 mmol/L (21-32); GLUCOSE 126 mg/dl (70-99); POTASSIUM 3.3 mmol/L (3.5-5.1); SODIUM 137 mmol/L (136-145)
[2017-06-07 17:34] VITALS: BP 147/80; PULSE 100; O2SAT 100
== END 2017-06-07 18:08 | disposition home or self-care (01) ==
LOC: C.EDB 16:14
DX: R06.02 Shortness of breath (principal); R07.89 Other chest pain; R00.0 Tachycardia, unspecified; R53.1 Weakness; R05 Cough; R20.0 Anesthesia of skin; F17.200 Nicotine dependence, unspecified, uncomplicated; Z88.2 Allergy status to sulfonamides; Z88.0 Allergy status to penicillin; Z91.040 Latex allergy status